=== PATIENT | male | born 1965 | race Hispanic/Latino ===

== ENCOUNTER → 2024-02-13 08:41 | Outpatient (REF) | payer BC, SELFPAY | LOC: CLINIC 08:41 | PROVIDERS: ATTENDING PHYSICIAN Family Medicine | DX: R07.89 Other chest pain (principal); M25.561 Pain in right knee | CPT/HCPCS: 71046; 73564; 93005 ==

== ENCOUNTER → 2024-03-18 06:49 | Outpatient (REF) | payer BC, SELFPAY | LOC: DHCBC/DCA 06:49 | PROVIDERS: ATTENDING PHYSICIAN Internal Medicine Cardiovascular Disease; FAMILY PHYSICIAN Family Medicine | DX: R06.02 Shortness of breath (principal) | CPT/HCPCS: 78452; 93017; A9500 ==

== ENCOUNTER → 2024-03-23 07:09 | Outpatient (REF) | payer BC, SELFPAY | LOC: RCS 07:09 | PROVIDERS: ATTENDING PHYSICIAN Internal Medicine Cardiovascular Disease; FAMILY PHYSICIAN Family Medicine | DX: R01.1 Cardiac murmur, unspecified (principal); R06.02 Shortness of breath | CPT/HCPCS: 93306 ==

== ENCOUNTER → 2024-08-26 06:32 | Day surgery (SDC) | payer BC, SELFPAY ==
[2024-08-26 09:03] LABS: Glucose - Point of Care 151 mg/dl (70-99)
== END ==
LOC: GI 06:32
PROVIDERS: ATTENDING PHYSICIAN Internal Medicine Gastroenterology
DX: Z12.11 Encounter for screening for malignant neoplasm of colon (principal); K63.5 Polyp of colon; K57.30 Diverticulosis of large intestine without perforation or abscess without bleeding; K64.8 Other hemorrhoids; Z86.0100 Personal history of colon polyps, unspecified
CPT/HCPCS: 45385; 45380; 88305; 82962

== ENCOUNTER → 2025-10-27 11:08 | Outpatient (REF) | payer BC, SELFPAY | LOC: RAD 11:08 | PROVIDERS: ATTENDING PHYSICIAN Internal Medicine; FAMILY PHYSICIAN Nurse Practitioner Family | DX: R10.84 Generalized abdominal pain (principal); E11.21 Type 2 diabetes mellitus with diabetic nephropathy | CPT/HCPCS: 74177; Q9967 ==